=== PATIENT | male | born 1945 | race Caucasian/White ===

== ENCOUNTER 2024-07-15 04:37 | Emergency (ER) | payer MEDICARE, SELFPAY ==
--- NOTE | ~2024-07-15 | XR_ITS ---
EXAMINATION: XR hand RT min 3V DATE: 07/15/2024 06:05 INDICATION: Right hand cat bite and redness and swelling. TECHNIQUE: 3 views of right hand were obtained. COMPARISON: None. FINDINGS: Alignment is normal. No fracture. There is severe osteoarthritis of first carpometacarpal j oint with loose bodies. There is moderate osteoarthritis of first metacarpophalangeal joint and mild osteoarthritis of many of the other metacarpophalangeal joints and interphalangeal joints. There is m oderate osteoarthritis of first interphalangeal joint, third proximal interphalangeal joint, and seco nd-fifth distal interphalangeal joints. IMPRESSION: 1. No fracture or radiopaque foreign body. 2. Polyarticular osteoarthritis. Reviewed, dictated and finalized at location A. OACTIVE WASTE DISPOSAL DISPATCHER
--- OUTSIDE RECORDS SUMMARY | 2024-07-15 04:39 | XMS_ITS | Encounter Summary ---
Author Organization [employer] Address 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
--- OUTSIDE RECORDS SUMMARY | 2024-07-15 04:39 | XMS_ITS | Clinical Summary ---
Author Organization [facility] Address [address] 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
--- OUTSIDE RECORDS SUMMARY | 2024-07-15 04:39 | XMS_ITS | Data Portability ---
Author Organization [facility] Address [address] [place] [address] Care Team Providers Care End Maker Name Role Phone RAGHU LUNA Primary Care Provider Assessment No assessment recorded. Plan of Treatment Reminders Order Date Submit Date Provider Last Modified By Organization Details Last Modified Time Details Appointments None recorded. Lab PSA, serum or plasma 2022 023 [facility], [address] [facility] [address], [place], [address], 3 08:20:00 CBC 2022 023 [facility], [address] [facility], [facility] [address], [place], [address], 3 06:15:39 CMP, serum or plasma 2022 023 [facility], [address] [facility], [facility] [address], [place], [address], 3 06:15:38 lipid panel, serum 2022 023 [facility], [address] [facility], [facility] [address], [place], [address], 3 06:15:37 Referral gastroente rologist referral 2022 023 christie Ferrer, [address] [facility], [facility] [address] [facility] [address], [address], 3 13:50:42 Procedures None recorded. Surgeries None recorded. Imaging None recorded. Medication Orders celecoxib 200 mg capsule [address] [id number], [address], [place], [id number], 3 11:01:11 meloxicam 15 mg tablet 2023 024 [id number], [address], [place], [id number], 4 11:03:37 Patient TargetsNo targets recorded. 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 History of polyp of colon Referring Physician: Raghu Luna, Family Medicine, Encounter Date: 07/10/2022 Results Created Date Observation Date Name Description Value Unit Range Abnormal Flag Note LastModifiedBy Organization Detail LastModifiedTime 07/10/1907/10/2022 LIPID PANEL cholesterol, total 172.8 mg/dL 140.0- 200.0 Not Available [facility] ([facility]) [address] [facility], [place], [address], 07/11/2022 06:15:37 07/10/1907/10/2022 LIPID PANEL triglyceride s 84 mg/dL <=150 Not Available [facility] ([facility]) [address] [facility], [place], [address], 07/11/2022 06:15:37 07/10/1907/10/2022 LIPID PANEL HDL cholesterol 53.9 mg/dL 40.0-1 00.0 Not Available [facility] ([facility]) [address] [facility] [place], [address], 07/11/2022 06:15:37 07/10/19 23 07/10/2022 LIPID PANEL VLDL cholesterol kayce 16.80 mg/dL 5.00-4 0.00 Not Available [facility] ([facility]) [address] [facility] [place], [address], 07/11/2022 06:15:37 07/10/19 23 07/10/2022 LIPID PANEL LDL chol calc ([facility]) 103.3 Not Available [facility] ([facility]) [address] [facility] [place], [address], 07/11/2022 06:15:37 07/10/19 23 07/10/2022 COMP. METAB OLIC PANEL (14) glucose 92 mg/dL 65-99 ANION GP 16.0 mmol/ L N OSMOL 283.0 mOsM/ L N REFER ENCE RANGE : 275.0 -301. 0 Not Available [facility] ([facility]) [address] [place], [address], 07/11/2022 06:15:38 07/10/19 23 07/10/2022 COMP. METAB OLIC PANEL (14) BUN 21 mg/dL 8-26 Not Available [facility] ([facility]) [address] [place], [address], 07/11/2022 06:15:38 07/10/19 23 07/10/2022 COMP. METAB OLIC PANEL (14) creatinine 0.86 mg/dL 0.50-1 .40 Not Available [facility] ([facility]) [address] [place], [address], 07/11/2022 06:15:38 07/10/19 23 07/10/2022 COMP. METAB OLIC PANEL (14) eGFR 90 mL/mi n/1.7 3 >=60 Not Available [facility] ([facility]) [address] [place], [address], 07/11/2022 06:15:38 07/10/19 23 07/10/2022 COMP. METAB OLIC PANEL (14) BUN/creatini ne ratio 24.2 Not Available [facility] ([facility]) [address] [facility] [place], [address], 07/11/2022 06:15:38 07/10/19 23 07/10/2022 COMP. METAB OLIC PANEL (14) sodium 140.8 mmol/ L 136.0- 144.0 Not Available [facility] ([facility]) [address] [facility] [place], [address], 07/11/2022 06:15:38 07/10/19 23 07/10/2022 COMP. METAB OLIC PANEL (14) potassium 4.5 mmol/ L 3.5-5. 3 Not Available [facility] ([facility]) [address] [place], [address], 07/11/2022 06:15:38 07/10/19 23 07/10/2022 COMP. METAB OLIC PANEL (14) chloride 103 mmol/ l 101-11 1 Not Available [facility] ([facility]) [address] [facility] [place], [address], 07/11/2022 06:15:38 07/10/19 23 07/10/2022 COMP. METAB OLIC PANEL (14) carbon dioxide, total 26.0 mmol/ L 21.0-3 2.0 Not Available [facility] ([facility]) [address] [facility] [place], [address], 07/11/2022 06:15:38 07/10/19 23 07/10/2022 COMP. METAB OLIC PANEL (14) calcium 9.4 mg/dL 8.2-10 .0 Not Available [facility] ([facility]) [address] [facility] [place], [address], 07/11/2022 06:15:38 07/10/19 23 07/10/2022 COMP. METAB OLIC PANEL (14) protein, total 7.2 g/dL 6.7-8. 2 Not Available [facility] ([facility]) [address] [place], [address], 07/11/2022 06:15:38 07/10/19 23 07/10/2022 COMP. METAB OLIC PANEL (14) albumin 4.3 g/dL 3.5-5. 5 Not Available [facility] ([facility]) [address] [place], [address], 07/11/2022 06:15:38 07/10/19 23 07/10/2022 COMP. METAB OLIC PANEL (14) globulin, total 2.9 g/dL 1.5-4. 5 Not Available [facility] ([facility]) [address] [place], [address], 07/11/2022 06:15:38 07/10/19 23 07/10/2022 COMP. METAB OLIC PANEL (14) A/G ratio 1.5 Not Available [facility] ([facility]) [address] [place], [address], 07/11/2022 06:15:38 07/10/19 23 07/10/2022 COMP. METAB OLIC PANEL (14) bilirubin, total 0.4 mg/dL 0.0-1. 2 Not Available [facility] ([facility]) [address] [place], [address], 07/11/2022 06:15:38 07/10/19 23 07/10/2022 COMP. METAB OLIC PANEL (14) alkaline phosphatase 73.0 IU/L 42.0-1 21.0 Not Available [facility] ([facility]) [address] [place], [address], 07/11/2022 06:15:38 07/10/19 23 07/10/2022 COMP. METAB OLIC PANEL (14) AST (SGOT) 20.1 U/L 10.0-4 2.0 Not Available [facility] ([facility]) [address] [facility] [place], [address], 07/11/2022 06:15:38 07/10/19 23 07/10/2022 COMP. METAB OLIC PANEL (14) ALT (SGPT) 20.1 U/L 10.0-6 0.0 Not Available [facility] ([facility]) [address] [facility] [place], [address], 07/11/2022 06:15:38 07/10/19 23 07/10/2022 CBC, PLATE LET, NO DIFFE RENTI AL WBC 5.0 K/uL 3.4-10 .8 Not Available [facility] ([facility]) [address] [place], [address], 07/11/2022 06:15:39 07/10/19 23 07/10/2022 CBC, PLATE LET, NO DIFFE RENTI AL RBC 5.2 M/uL 4.5-6. 3 Not Available [facility] ([facility]) [address] [place], [address], 07/11/2022 06:15:39 07/10/19 23 07/10/2022 CBC, PLATE LET, NO DIFFE RENTI AL hemoglobin 15.3 g/dL 13.5-1 7.5 Not Available [facility] ([facility]) [address] [place], [address], 07/11/2022 06:15:39 07/10/19 23 07/10/2022 CBC, PLATE LET, NO DIFFE RENTI AL hematocrit 46.8 % 40.0-5 2.0 Not Available [facility] ([facility]) [address] [place], [address], 07/11/2022 06:15:39 07/10/19 23 07/10/2022 CBC, PLATE LET, NO DIFFE RENTI AL MCV 90 fL 80-95 Not Available [facility] ([facility]) [address] [facility], [place], [address], 07/11/2022 06:15:39 07/10/1907/10/2022 CBC, PLATE LET, NO DIFFE RENTI AL MCH 29 pg 27-32 Not Available [facility] ([facility]) [address] [facility], [place], [address], 07/11/2022 06:15:39 07/10/1907/10/2022 CBC, PLATE LET, NO DIFFE RENTI AL MCHC 33 g/dL 32-36 Not Available [facility] ([facility]) [address] [place], [address], 07/11/2022 06:15:39 07/10/1907/10/2022 CBC, PLATE LET, NO DIFFE RENTI AL RDW 13.0 % 11.5-1 4.5 Not Available [facility] ([facility]) [address] [place], [address], 07/11/2022 06:15:39 07/10/1907/10/2022 CBC, PLATE LET, NO DIFFE RENTI AL platelets 262 K/uL 155-37 9 MPV 9.9 FL 8.9-1 2.7 N Not Available [facility] ([facility]) [address] [place], [address], 07/11/2022 06:15:39 07/10/1907/10/2022 CBC, PLATE LET, NO DIFFE RENTI AL NRBC 0 % Not Available [facility] ([facility]) [address] [place], [address], 07/11/2022 06:15:39 07/10/19 23 07/10/2022 PSA TOTAL (REFL EX TO FREE) reflex criteria Commen t The perce nt free PSA is perfo rmed on a refle x basis only when the total PSA is betwe en 4.0 and 10.0 ng/mL . Not Available [facility] ([facility]) [address] [facility], [place], [address], 07/11/2022 08:20:00 07/10/1907/11/2022 PSA TOTAL (REFL EX TO FREE) prostate specific Ag 2.3 NG/mL 0.0-4. 0 Jorge L ECLIA metho dolog y. Accor ding to the Ameri can Urolo gical Assoc iatio n, Serum PSA shoul d decre ase and remai n at undet ectab le level s after radic al prost atect jean. The AUA defin es bioch emica l recur rence as an initi al PSA value 0.2 ng/mL or great er follo wed by a subse quent confi rmato ry PSA value 0.2 ng/mL or great er. Value s obtai briana with diffe rent assay metho ds or kits canno t be used inter cowan eably . Resul ts canno t be inter prete d as absol th[place] town evide nce of the prese nce or absen ce of moose hernandez se. Not Available [facility] ([facility]) [address] [facility], [place], [address], 07/11/2022 08:20:00 07/10/1907/10/2022 CARDI OVASC ULAR REPOR T interpretati on Note Suppl ement al repor t is avail able. Not Available [facility] ([facility]) [address] [facility], [place], [address], 07/11/2022 06:15:38 07/10/1907/10/2022 CARDI OVASC ULAR REPOR T pdf . Not Available [facility] ([facility]) [address] [facility], [place], [address], 07/11/2022 06:15:38 Result Notes None recorded. Problems No Known Problems Procedures Surgical History Date Name Laterality Status Provider Name and Address Organization Details Recorded Time Total hip arthroplasty completed Rosibel Mancilla MA [facility] 07/10/2022 10:06:14 Knee arthroscopy/surge ry completed Rosibel Mancilal MA [facility] 07/10/2022 10:06:38 Knee Surgery completed Rosibel Mancilla MA [facility] 07/10/2022 10:07:56 procedure on upper arm completed Rosibel Mancilla MA [facility] 07/10/2022 10:09:15 Imaging Results None recorded. Procedure Notes None recorded. Medical Equipment None Reported. Allergies No known drug allergies Medications Name Sig Start Date Stop Date Status Note LastModified by Organization Details LastModified Time celecoxib 200 mg capsule TAKE 1 CAPSULE BY MOUTH EVERY DAY active Not Available Not Available No t Available meloxicam 15 mg tablet TAKE 1 TABLET BY MOUTH EVERY DAY NEEDED 025 active Not Available Not Available Not Avai lable amoxicillin 500 mg tablet TAKE 1 TABLET BY MOUTH THREE TIMES DAILY UNTIL GONE active Not Available Not Available No t Available Vitals Date Recorded Body weight Oxygen saturation Oxygen saturation in Arterial blood by Pulse oximetry Heart rate Systolic blood pressure Diastolic blood pressure Provider Name and Address Organization Details Last Updated DateTime 3 05977.2 6 g 96 % 96 % 56 /min 124 mm[Hg] 72 mm[Hg] Rosibel wall MA [facility] 3 10:11:43 Date Recorded Body weight Body height Body mass index (BMI) Oxygen saturation Oxygen saturation in Arterial blood by Pulse oximetry Heart rate Body temperature Provider Name and Address Organization Details Last Updated DateTime 3 36942.8 8 g 162.56 cm 34.2 kg/m2 96 % 96 % 72 /min 98.2 [degF] Rosibel wall MA [facility] 3 10:24:48 Date Recorded Systolic blood pressure Diastolic blood pressure Provider Name and Address Organization Details Last Updated DateTime 08/17/2022 150 mm[Hg] 80 mm[Hg] Raghu Luna PA-C Attn: Accounting[address] [place], [address], [place] - [facility] 08/17/2022 10:54:47 Date Recorded Body height Body mass index (BMI) Body weight Systolic blood pressure Diastolic blood pressure Provider Name and Address Organization Details Last Updated DateTime 02/18/2024 162.56 cm 34.7 kg/m2 69781.36 g 126 mm[Hg] 70 mm[Hg] Sole Vernon MA [place] - [facility] 10:50:42 Social History Question Answer Notes LastModified by Organizat ion Details LastModified Time Tobacco Smoking Status Former Smoker quit 10 years ago Rosibel Mancilla MA null, [place] [facility] 07/10/2022 10:04:28 What Is Your Level Of Alcohol Consumption? Occasional 2-3 Drinks Per Month Information not available 07/10/2022 Are You Blind Or Do You Have Difficulty Seeing? Yes Reading Glasses Information not available 07/10/2022 What Is Your Level Of Caffeine Consumption? Moderate Coffee, Tea Information not available 08/17/2022 Are You Currently Employed? Yes Information not available 07/10/2022 Are You Deaf Or Do You Have Serious Difficulty Hearing? No Information not available 07/10/2022 What Type Of Diet Are You Following? 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 02/18/2024 Information not available 02/18/2024 What Is Your Relationship Status? Information not available 07/10/2022 Do You Use Your Seat Belt Or Car Seat Routinely? Yes Information not available 07/10/2022 Do You Have Smoke And Carbon Monoxide Detectors In Your Home? Yes Information not available 07/10/2022 Are You Passively Exposed To Smoke? No Information not available 07/10/2022 Do You Feel Stressed (tense, Restless, Nervous, Or Anxious, Or Unable To Sleep At Night)? TS4946-1 Information not available 07/10/2022 Do You Use Any Illicit Or Recreational Drugs? No Information not available 07/10/2022 Has Tobacco Cessation Counseling Been Provided? Yes Information not available 07/10/2022 On What Date Was Tobacco Cessation Counseling Provided? 02/18/2024 Information not available 02/18/2024 Do You Or Have You Ever Used Any Other Forms Of Tobacco Or Nicotine? No Information not available 07/10/2022 Sex: Male Functional Status Question Answer Note LastModified by Organizat ion Details LastModified Time Are you able to care for yourself? Yes Information not available 07/10/2022 What is your exercise level? Occasional Information not available 07/10/2022 Mental Status None recorded. Family History Relationship Description Onset Age of this Age Resolved Age Notes LastModified by Organization Details LastModified Time Father No current problems or disability [email or web address] Not available 0 07/10/2022 10:04:15 Mother No current problems or disability [email or web address] Not available 0 07/10/2022 10:04:16 Medical History No medical history recorded. Immunizations Vaccine Type Date Status Note Provider Nam e and Address Organization Details Recorded Time COVID-19, mRNA, LNP-S, PF, 100 mcg/0.5mL dose or 50 mcg/0.25mL dose 1 completed An Hernandez MA null, [place] - [facility] 08/01/2020 14:43:37 COVID-19, mRNA, LNP-S, PF, 100 mcg/0.5mL dose or 50 mcg/0.25mL dose 1 completed Luis Antonio Rojas [place] null, [place] - [facility] 08/29/2020 12:29:13 Pneumococcal conjugate PCV20, polysaccharide [id number] conjugate, adjuvant, PF 4 completed Sole Vernon [place] null, [place] - [facility] 02/18/2024 11:25:36 COVID-19, mRNA, LNP-S, PF, 50 mcg/0.5 mL 4 completed Sole Vernon [place], [place] [facility] 04/18/2024 10:27:01 Influenza, high-dose, trivalent, PF 11/12/202 4 completed SHARATH Krueger, [place] - [facility] 04/18/2024 10:27:02 Past Encounters Encounter ID Performer Location Encounter Start Date Encounter Closed Date Diagnosis/Indication Diagnosis SNOMED-CT Code Diagnosis ICD10 Code Diagnosis Note [id number] Karina Zhao LPN [place] 14 IM 4 [facility] [place] [address] 08/01/2020 11:06:33 08/02/2020 06:27:41 Administration of SARS-CoV-2 antigen vaccine 503671120 Z23 [id number] Karina Zhao LPN [place] 14 IM 4 [facility] [place] [address] 08/29/2020 11:00:20 08/30/2020 12:15:52 Administration of SARS-CoV-2 antigen vaccine 120020182 Z23 [id number] [facility] [address] [place] [address] 07/10/2022 09:44:19 07/10/2022 10:59:05 Mechanical ileus 69285926 K56.690 Adult [facility] th examination 600991918 Z00.00 Screening for malignant neoplasm of prostate 778297146 Z12.5 Overweight 723333123 E66 .3 History of polyp of colon 006820415 Z86.919 [id number] Raghu Luna PA-C [facility] [address] [place] [address] 08/17/2022 10:21:05 08/18/2022 10:47:57 Adult health examination 007179550 Z00.00 Localized, primary osteoarthritis 464261050 M19.91 Overweight 212017648 E66 .3 Osteoarthritis 038479920 M19.90 [id number] SOY Castaneda [address] [place] [address] 02/18/2024 10:35:05 02/22/2024 12:19:53 Administration of pneumococcal vaccine 38064321 Z23 Osteoarthritis 165743064 M15.0 Overweight 367639904 E66 .3 [id number] Sole Vernon MA [facility] [address] [place] [address] 04/18/2024 10:00:51 04/19/2024 09:20:21 Immunization due 299082348 Z28.39 Health Concerns Section Related Observation LastModified by Organization Detai ls LastModified Time None Recorded Concern Status LastModified by Organization Details LastModified Time None Recorded Advance Directives Directive None Recorded Payers Encounter Date Sequence Insurance Name Policy Number Policy Persaud Covered Member ID Persaud Member ID Guarantor Name 08/29/2020 1 [place] Julio Cesar Gerardosch [id number] [facility] Jose E [facility] 08/29/2020 2 [place] [id number] Abilio Gerardosch [id number] Julio Cesar Jose E [facility] 07/10/2022 1 [place] Julio Cesar Dorantes Amisch [id number] [facility] 07/10/2022 1 UMR [id number] Abilio Gerardosch [id number] [facility] 08/17/2022 1 [place] Julio Cesar Dorantes Amisch [id number] [facility] 08/17/2022 1 UMR [id number] Abilio Dorantes Amisch [id number] [facility] Jose E [facility] 02/18/2024 1 [place] Julio Cesar Gerardosch [id number] [facility] Jose E [facility] 04/18/2024 1 [place] Julio Cesar Gerardosch [id number] Julio Cesar Jose E [facility] Notes Date Note Type Note Provider Name and Address Organization Details Recorded Time 07/10/2022 text/html see review...als o needs labs... Raghu Luna PA-C Attn: Accounting[address] [facility], [place], [address], [facility] 07/10/2022 10:33:12 08/17/2022 text/html wants to re certify for scuba diving and needs a physical...had covid a few weeks ago... Raghu Luna PA-C Attn: Accounting[address] [facility], [place], [address], [facility] 08/17/2022 11:26:08 02/18/2024 text/html had colonoscopy and endo...only thing found was irritation from nsaids...labs at [place] were all good...is liking celebrex.... Raghu Luna PA-C Attn: Accounting[address] [place], [address], [facility] 02/18/2024 11:07:33
--- OUTSIDE RECORDS SUMMARY | 2024-07-15 04:39 | XMS_ITS | Clinical Summary ---
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/18/2019 Social History Tobacco Use Types Packs/Day Years Used Date Smoking Tobacco: Former Smokeless Tobacco: Never Tobacco Cessation:Counseling Given: Yes Personal Safety Answer Date Recorded Getting School Help Needed Not on file 06/22 Sex and Gender Information Value Date Recorded Sex Assigned at Not on file Legal Sex Male 7:53 PM SUPERVISOR HARDBOARD Gender Identity Not on file Sexual Orientation Not on file Obstetrics History Last Filed Vital Signs Vital Sign Reading Time Taken Comments Blood Pressure 114/64 07/22/2022 8:45 AM SUPERVISOR HARDBOARD Pulse 57 07/22/2022 8:45 AM SUPERVISOR HARDBOARD Temperature 36.8 C (98.2 F) 07/22/2022 8:45 AM SUPERVISOR HARDBOARD Respiratory Rate 15 07/22/2022 8:45 AM SUPERVISOR HARDBOARD Oxygen Saturation 98% 07/22/2022 8:45 AM SUPERVISOR HARDBOARD Inhaled Oxygen Concentration - - Weight 86.2 kg (190 lb) 07/22/2022 8:45 AM SUPERVISOR HARDBOARD Height 170.2 cm (5' 7 ) 07/22/2022 8:45 AM SUPERVISOR HARDBOARD Body Mass Index 29.76 07/22/2022 8:45 AM SUPERVISOR HARDBOARD Plan of Treatment Health Maintenance Due Date Last Done Comments Depression Screening 1945 Fall Risk Assessment 1945 Hepatitis C Screening 1945 DTaP/Tdap/Td Vaccine (1 - Tdap) 1956 Hepatitis B Screening 10/03/1963 Zoster Vaccine (1 of 2) 10/03/1995 Abdominal Aortic Aneurysm (A AA) Screen 2010 Pneumococcal vaccine 65+ (1 of 1 - PCV) 2010 Well Visit 65+ 2010 Covid-19 Vaccine (6 - 2023-2 5 season) 2024 05/27/2022, 09/12/2021, 04/22/2021, Additional history exists Influenza Vaccine (#1) 2024 05/27/2022 Colon Cancer Screening-CT Colonography Discontinued 07/28/2011 Colon Cancer Screening-Colonoscopy Discontinued 07/28/2011 Colon Cancer Screening-DNA Stool Discontinued 07/28/19 12 Colon Cancer Screening-FIT Discontinued 07/28/2011 Colon Cancer Screening-FOBT Discontinued 07/28/2011 Colon Cancer Screening-Sigmoidoscopy Discontinued 07/28/2011 Colorectal Cancer Screening Discontinued Procedures Procedure Name Priority Date/Time Associated Diagnosis Comments COLONOSCOPY 07/28/2011 12:00 AM SUPERVISOR HARDBOARD from Last 3 Months or Most Recently Relevant to Health Maintenance Results * COLONOSCOPY (07/28/2011 12:00 AM SUPERVISOR HARDBOARD) Anatomical Region Laterality Modality Other Narrative 07/28/2011 12:00 AM SUPERVISOR HARDBOARD Ordered by an unspecified provider. Procedure Note Provider, MD Eulogio - 07/28/2011 12:00 AM CST PROCEDURE REPORT Patient: AMA ABDUL Account: [id number] Room No: : 1945 Patient Type: [facility] Attend.: Nura Ferrer M.D. Admit Date: 07/28/2011 Dict.: Nura Ferrer M.D. Disch. Date:07/28/2011 PROCEDURE PERFORMED: Colonoscopy with polypectomy. INDICATION: Screening for colon cancer. DATE OF PROCEDURE: 07/28/2011 PRIMARY CARE PHYSICIAN: Dr. Byron Vaughn. BRIEF HISTORY AND PHYSICAL: The patient is a 65-year-old white male.Last colonoscopy was 15 years ago. Patient presented for screening colonoscopytest. PROCEDURE: Sedation was provided by anesthesia service. The procedureof colonoscopy including indications and possible complications ofbleeding, infection and perforation requiring surgery were discussed with thepatient and consent was obtained. Rectal exam prior to colonoscopy wasunremarkable. The scope introduced into the rectum and advanced all the way to thececum which was identified by the ileocecal valve and appendiceal orifice. Thececum and were unremarkable. In the proximal part of the transversecolon there was a 10 mm semi-sessile polyp removed by hot snare technique.There was another 4 mm polyp in the same vicinity and removed by cold biopsyforceps. The ileocecal valve appeared somewhat thick and biopsy was performed torule out polyp formation. The remainder part of the transverse colon,descending colon, sigmoid colon and rectum were unremarkable. A few smalldiverticuli noted scattered in the sigmoid colon and ascending colon. Retroflexion ofthe rectum showed small internal hemorrhoids. IMPRESSION: 1. 10 mm semi-sessile polyp in the proximal transverse colon removedby snare polypectomy. 2. 4 mm polyp in the proximal transverse colon removed by coldbiopsy forceps. 3. Diverticulosis of sigmoid colon. 4. Small internal hemorrhoids. RECOMMENDATIONS: 1. Follow up pathology report. Katarina Singh/jayleen TD: 07/29/2011 14:01 CC: Byron Vaughn M.D. Authenticated by Nura Ferrer MD On 07/31/2011 12:39:58 PM Historical Provider ENDOSCOPY PROCEDURES Amanda l Result from Last 3 Months or Most Recently Relevant to Health Maintenance Insurance [facility] ACCESS CHOICE MEDICARE [facility] CHOICE [facility] CHOICE MEDICARE [facility] Care Teams Biology Specimen Technician Relationship Specialty Start Date End Date Hayes Luna PA [address] [place] [address] PCP - General Family Practice 07/22/22 [facility], Jimmie Berger [address] [place] [address] Referring Physician Genetics 07/22/22
--- OUTSIDE RECORDS SUMMARY | 2024-07-15 04:39 | XMS_ITS | Referral Summary ---
Author Organization [facility] Address [address] [place] [address] Care Team Providers Care Bottom Finisher Name Role Phone Hayes Luna Primary Care Provider [phone] [facility], Jimmie Berger Unavailable Allergies No known active [...] on file Legal Sex Male 7:53 PM PRINCIPAL SCIENTIST Gender Identity Not on file Sexual Orientation Not on file Last Filed Vital Signs Vital Sign Reading Time Taken Comments Blood Pressure 114/64 07/22/2022 8:45 AM PRINCIPAL SCIENTIST Pulse 57 07/22/2022 8:45 AM PRINCIPAL SCIENTIST Temperature 36.8 C (98.2 F) 07/22/2022 8:45 AM PRINCIPAL SCIENTIST Respiratory Rate 15 07/22/2022 8:45 AM PRINCIPAL SCIENTIST Oxygen Saturation 98% 07/22/2022 8:45 AM PRINCIPAL SCIENTIST Inhaled Oxygen Concentration - - Weight 86.2 kg (190 lb) 07/22/2022 8:45 AM PRINCIPAL SCIENTIST Height 170.2 cm (5' 7 ) 07/22/2022 8:45 AM PRINCIPAL SCIENTIST Body Mass Index 29.76 07/22/2022 8:45 AM PRINCIPAL SCIENTIST Plan of Treatment Not on file Procedures Procedure Name Priority Date/Time Associated Diagnosis Comments COLONOSCOPY 07/28/2011 12:00 AM PRINCIPAL SCIENTIST from Last 3 Months or Most Recently Relevant to Health Maintenance Results * COLONOSCOPY (07/28/2011 12:00 AM PRINCIPAL SCIENTIST) Anatomical Region Laterality Modality Other Narrative 07/28/2011 12:00 AM PRINCIPAL SCIENTIST Ordered by an unspecified provider. Procedure Note Provider, MD Eulogio - 07/28/2011 12:00 AM CST PROCEDURE REPORT Patient: AMA ABDUL Account: [id number] Room No: : 1945 Patient Type: [facility] Attend.: Nura Ferrer M.D. Admit Date: 07/28/2011 [...] hemorrhoids. RECOMMENDATIONS: 1. Follow up pathology report. Nura Ferrer M.D. ZACKARY/jayleen TD: 07/29/2011 14:01 CC: Byron Vaughn M.D. Authenticated by Nura Ferrer MD On 07/31/2011 12:39:58 PM Historical Provider ENDOSCOPY PROCEDURES Amanda l Result from Last 3 Months or Most Recently Relevant to Health Maintenance Insurance [facility] CHOICE Member Subscriber Plan / Payer ( fective 2017-Present) Name:Ama Abdul Relation to Subscriber:Self Name:Ama Abdul Payer ID:[id number] (NAIC) Type:[facility] Address: [address] [place] [id number] MEDICARE [facility] CHOICE [facility] MEDICARE [facility] Care Teams Bottom Finisher Relationship Specialty Start Date End Date Hayes Luna PA [address] [place] [address] PCP - General Family Practice 07/22/22 [facility], Jimmie Berger [address] [place] [id number] Referring Physician Genetics 07/22/22
--- NOTE | 2024-07-15 04:50 | ECG_ITS ---
Test Date: 2024-07-15 04:58:23 Measurements Intervals [place] Rate: 51 P: 64 LA: 182 QRS: 36 QRSD: 93 T: 42 QT: 444 QTc: 410 Interpretive Statements SINUS BRADYCARDIA BASELINE WANDER- II, III, AVR, AVL, AVF, V1-V2, V4-V6 BORDERLINE ECG No previous ECG available for comparison Electronically Signed On 07-15-2024 06:36:26 DOMESTIC TRAVEL CONSULTANT by Lefty Marinelli D.O.
--- NOTE | 2024-07-15 04:54 | ED_ITS ---
HPI - General Adult General Chief complaint: Wound/Laceration Stated complaint: wound to hand Time Seen by Provider: 07/15/24 04:51 History of Present Illness HPI narrative: This is a 70-year-old left-handed male male presenting after a cat bite. He was bit by his cat 1 week ago over his right 2nd digit MCP. He has been on Augmentin for 5 days. He has now developed increased redness and a fluctuant mass over his MCP of the 2nd digit. Patient denies fevers chills nausea vomiting or diarrhea. Related Data Home Medications ?Medication ?Instructions ?Recorded ?Confirmed ?Last Taken ?Type No Home Medications 01/24/20 02/19/21 Unknown History Allergies Allergy/AdvReac Type Severity Reaction Status Date / Time No Known Allergies Allergy Other Uncoded 07/09/24 08:34 [facility] Past Medical History Medical History Cancer of ear Surgical History Surgical History History of hip surgery right total hip - 2018 - Dr. 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 Head: atraumatic. EYES: EOMI, NOSE: Atraumatic NECK: Trachea midline RESPIRATORY: No increased rate of breathing CARDIOVASCULAR: RRR, ABDOMINAL: Non-distended MUSCULOSKELETAl: Cellulitic changes over the dorsal aspect right hand with a fluctuant mass over the MCP of the 2nd digit NEURO: Alert. Moving 4/4 extremities SKIN:: Warm, dry. Normal color PSYCHIATRIC: Normal affect Course Vital Signs Vital signs: Vital Signs Temperature 97.7 F 07/15/24 04:57 Pulse Rate 61 07/15/24 04:57 Respiratory Rate 18 07/15/24 04:57 Blood Pressure 175/91 H 07/15/24 04:57 Pulse Oximetry 97 07/15/24 04:57 Temperature 97.7 F 07/15/24 04:57 Pulse Rate 56 L 07/15/24 05:41 Respiratory Rate 16 07/15/24 05:41 Blood Pressure 165/96 H 07/15/24 05:41 Pulse Oximetry 100 07/15/24 05:41 Medical Decision Making MDM Narrative Medical decision making narrative: -Course: 70-year-old male presenting 1 week after a cat bite. He has failed outpatient therapy. It appears he is developing an abscess over his right MCP. Patient has been started on Zosyn. He will need a hand surgeon and we do not have one awake overnight monitor. Patient will be transferred. Patient accepted by Dr. Carrasco in the [facility] emergency department. Patient will be transferred private vehicle. -DDX includes but is not limited to: Cellulitis, abscess Vital Signs Vital Signs: Vital Signs Temperature 97.7 F 07/15/24 04:57 Pulse Rate 61 07/15/24 04:57 Respiratory Rate 18 07/15/24 04:57 Blood Pressure 175/91 H 07/15/24 04:57 Pulse Oximetry 97 07/15/24 04:57 Temperature 97.7 F 07/15/24 04:57 Pulse Rate 56 L 07/15/24 05:41 Respiratory Rate 16 07/15/24 05:41 Blood Pressure 165/96 H 07/15/24 05:41 Pulse Oximetry 100 07/15/24 05:41 Lab Data 07/15/24 05:06 07/15/24 05:06 Labs: Lab Results 07/15/24 07/15/24 Range/Units 05:06 05:19 WBC 4.9 (4.5-10.0) K/mm3 RBC 4.89 (4.6-6.20) M/mm3 Hgb 14.8 (14.0-18.0) g/dL Hct 44.4 (42.0-52.0) % MCV 90.8 (80-100) fl MCH 30.3 (26-34) pg MCHC 33.3 (32-36) g/dl RDW 12.9 (11.5-14.5) % Plt Count 261 (150-375) k/mm3 MPV 9.2 (7.4-10.4) fl Immature Gran % (Auto) 0.2 (0-0.5) % Neut % (Auto) 40.1 L (45.5-73.1) % Lymph % (Auto) 44.5 H (18.3-44.2) % [place] % (Auto) 11.7 H (2.6-8.5) % Eos % (Auto) 2.5 (0-4.4) % Baso % (Auto) 1.0 (0.2-1.2) % Lymph # (Auto) 2.17 (0.9-3.2) K/mm3 [place] # (Auto) 0.6 (0.1-0.6) K/mm3 Eos # (Auto) 0.1 (0-0.3) K/mm3 Baso # (Auto) 0.1 (0.0-0.1) K/mm3 Abs Immat Gran (auto) 0.01 (0.00-0.031) K/mm3 Absolute Neuts (auto) 2.0 (1.3-6.7) K/mm3 Absolute Nucleated RBC 0.000 (0.0-0.012) K/mm3 Nucleated RBC % 0.0 (0.0-0.2) % PT 13.2 (11.1-14.7) Seconds INR 1.0 APTT 30.8 (22.3-36.8) Seconds Sodium 140 (137-145) mmol/L Potassium 4.2 (3.4-5.0) mmol/L Chloride 104 (98-107) mmol/L Carbon Dioxide 27 (22-30) mmol/L Anion Gap 9 (4-12) mmol/L BUN 18 (9-20) mg/dL Creatinine 0.87 (0.7-1.3) mg/dL Estim Creat Clear Calc 69 ml/min Estimated GFR > 60 (59 - ) Glucose 101 (65-110) mg/dL Lactic Acid 0.8 (0.7-2.0) mmol/L Calcium 8.7 (8.4-10.2) mg/dL Phosphorus 3.4 (2.5-4.5) mg/dL Magnesium 2.3 (1.6-2.3) mg/dL Total Bilirubin 0.4 (0.2-1.3) mg/dL AST 23 (17-59) U/L ALT 27 (6-50) U/L Alkaline Phosphatase 74 (38-126) U/L Total Protein 7.0 (6.3-8.2) g/dL Albumin 3.9 (3.5-5.1) g/dL Influenza A (RT-PCR) Negative (Negative) Influenza B (RT-PCR) Negative (Negative) RSV (RT-PCR) Negative (Negative) SARS-CoV-2 RNA (RT-PCR) Negative (Negative) Discharge Plan Discharge Clinical Impression: Infected cat bite Patient Disposition: Acute Care Hospital Condition: Stable Instructions: Animal Bite (ED) Additional Instructions: Please report directly to [facility] emergency department to be evaluated by their hand surgeon. The address of the emergency department is: [address] [place] [id number] Patient Language: Faroese Prescriptions: No Action amoxicillin-pot clavulanate 875-125 mg tablet 1 tablet PO Q12H 7 Days Qty: 14 0RF No Home Medications Follow-up/Referrals: PHYSICIAN,LANOLIN PLANT OPERATOR [Primary Care Provider] -
[2024-07-15 04:57] VITALS: BP 175/91; PULSE 61; RESP 18; TEMP 36.5; O2SAT 97
[2024-07-15 05:13] LABS: Basophils Absolute Auto 0.1 K/mm3 (0.0-0.1); Eosinophils Absolute Auto 0.1 K/mm3 (0-0.3); Eosinophils Percent Auto 2.5 % (0-4.4); Hematocrit 44.4 % (42.0-52.0); Hemoglobin 14.8 g/dL (14.0-18.0); Immature Granulocyte Absolute 0.01 K/mm3 (0.00-0.031); Immature Granulocyte Percent A 0.2 % (0-0.5); Lymphocytes Absolute Auto 2.17 K/mm3 (0.9-3.2); Lymphocytes Percent Auto 44.5 % (18.3-44.2); Mean Corpuscular HGB Conc 33.3 g/dl (32-36); Mean Corpuscular Hemoglobin 30.3 pg (26-34); Mean Corpuscular Volume 90.8 fl (80-100); Mean Platelet Volume 9.2 fl (7.4-10.4); Monocytes Absolute Auto 0.6 K/mm3 (0.1-0.6); Monocytes Percent Auto 11.7 % (2.6-8.5); Neutrophils Percent Auto 40.1 % (45.5-73.1); Platelet Count Result 261 k/mm3 (150-375); Red Blood Count 4.89 M/mm3 (4.6-6.20); Red Cell Distribution Width 12.9 % (11.5-14.5); White Blood Count 4.9 K/mm3 (4.5-10.0)
[2024-07-15 05:22] LABS: Lactic Acid Reflex 0.8 mmol/L (0.7-2.0)
[2024-07-15 05:24] LABS: Alanine Aminotransferase 27 U/L (6-50); Albumin Level 3.9 g/dL (3.5-5.1); Alkaline Phosphatase 74 U/L (38-126); Anion Gap 9 mmol/L (4-12); Aspartate Amino Transferase 23 U/L (17-59); Bilirubin,Total 0.4 mg/dL (0.2-1.3); Blood Urea Nitrogen 18 mg/dL (9-20); Calcium 8.7 mg/dL (8.4-10.2); Carbon Dioxide 27 mmol/L (22-30); Chloride 104 mmol/L (98-107); Estimated CRCL calculation 69 ml/min; Estimated Glomerular Filt Rate > 60; Glucose 101 mg/dL (65-110); Magnesium 2.3 mg/dL (1.6-2.3); Phosphorus 3.4 mg/dL (2.5-4.5); Potassium 4.2 mmol/L (3.4-5.0); Prothrombin Time 13.2 Seconds (11.1-14.7); Sodium 140 mmol/L (137-145)
[2024-07-15 05:25] LABS: Partial Thromboplastin Time 30.8 Seconds (22.3-36.8)
[2024-07-15] MEDS: PIPERACILLN/TAZ 3.375GM/NS50ML 3.375 GM/50 ML BAG IVPB (05:30)
[2024-07-15 05:41] VITALS: BP 165/96; PULSE 56; RESP 16; O2SAT 100
--- OUTSIDE RECORDS SUMMARY | 2024-07-15 05:42 | XMS_ITS | Referral Summary ---
Author Organization [facility] Address [address] [place] [address] Care Team Providers Care Economic Adviser Name Role Phone Hayes Luna Primary Care Provider [phone] [facility], Jimmie Berger Unavailable Allergies No known [...] on file Legal Sex Male 7:53 PM LIFT DRIVER Gender Identity Not on file Sexual Orientation Not on file Last Filed Vital Signs Vital Sign Reading Time Taken Comments Blood Pressure 114/64 07/22/2022 8:45 AM LIFT DRIVER Pulse 57 07/22/2022 8:45 AM LIFT DRIVER Temperature 36.8 C (98.2 F) 07/22/2022 8:45 AM LIFT DRIVER Respiratory Rate 15 07/22/2022 8:45 AM LIFT DRIVER Oxygen Saturation 98% 07/22/2022 8:45 AM LIFT DRIVER Inhaled Oxygen Concentration - - Weight 86.2 kg (190 lb) 07/22/2022 8:45 AM LIFT DRIVER Height 170.2 cm (5' 7 ) 07/22/2022 8:45 AM LIFT DRIVER Body Mass Index 29.76 07/22/2022 8:45 AM LIFT DRIVER Plan of Treatment Not on file Procedures Procedure Name Priority Date/Time Associated Diagnosis Comments COLONOSCOPY 07/28/2011 12:00 AM LIFT DRIVER from Last 3 Months or Most Recently Relevant to Health Maintenance Results * COLONOSCOPY (07/28/2011 12:00 AM LIFT DRIVER) Anatomical Region Laterality Modality Other Narrative 07/28/2011 12:00 AM LIFT DRIVER Ordered by an unspecified provider. Procedure Note Provider, MD Eulogio - 07/28/2011 12:00 AM CST PROCEDURE REPORT Patient: AMA ABDUL Account: [id number] Room No: : 1945 Patient Type: [facility] Attend.: Nura Ferrer M.D. Admit [...] Most Recently Relevant to Health Maintenance Insurance [facility] CHOICE Member Subscriber Plan / Payer ( fective 2017-Present) Name:Ama Abdul Relation to Subscriber:Self Name:Ama Abdul Payer ID:[id number] (NAIC) Type:[facility] Address: [address] [place] [id number] MEDICARE [facility] CHOICE [facility] MEDICARE [facility] Care Teams Economic Adviser Relationship Specialty Start Date End Date Hayes Luna PA [address] [place] [address] PCP - General Family Practice 07/22/22 [facility], Jimmie Berger [address] [place] [address] Referring Physician Genetics 07/22/22
--- OUTSIDE RECORDS SUMMARY | 2024-07-15 05:42 | XMS_ITS | Clinical Summary ---
Author Organization [facility] Address [address] [place] [address] Care Team Providers Care Recreational Specialist Name Role Phone Hayes Luna Primary Care Provider [phone] , Jimmie Berger Unavailable Allergies No known active [...] on file Legal Sex Male 7:53 PM PLATE PUT IN WORKER Gender Identity Not on file Sexual Orientation Not on file Obstetrics History Last Filed Vital Signs Vital Sign Reading Time Taken Comments Blood Pressure 114/64 07/22/2022 8:45 AM PLATE PUT IN WORKER Pulse 57 07/22/2022 8:45 AM PLATE PUT IN WORKER Temperature 36.8 C (98.2 F) 07/22/2022 8:45 AM PLATE PUT IN WORKER Respiratory Rate 15 07/22/2022 8:45 AM PLATE PUT IN WORKER Oxygen Saturation 98% 07/22/2022 8:45 AM PLATE PUT IN WORKER Inhaled Oxygen Concentration - - Weight 86.2 kg (190 lb) 07/22/2022 8:45 AM PLATE PUT IN WORKER Height 170.2 cm (5' 7 ) 07/22/2022 8:45 AM PLATE PUT IN WORKER Body Mass Index 29.76 07/22/2022 8:45 AM PLATE PUT IN WORKER Plan of Treatment Health Maintenance Due Date [...] Associated Diagnosis Comments COLONOSCOPY 07/28/2011 12:00 AM PLATE PUT IN WORKER from Last 3 Months or Most Recently Relevant to Health Maintenance Results * COLONOSCOPY (07/28/2011 12:00 AM PLATE PUT IN WORKER) Anatomical Region Laterality Modality Other Narrative 07/28/2011 12:00 AM PLATE PUT IN WORKER Ordered by an unspecified provider. Procedure Note Provider, MD Eulogio - 07/28/2011 12:00 AM CST PROCEDURE REPORT Patient: AMA ABDUL Account: [id number] Room No: : 1945 Patient Type: [facility] Attend.: Nura Ferrer M.D. Admit Date: [...] Most Recently Relevant to Health Maintenance Insurance [facility] ACCESS CHOICE MEDICARE [facility] CHOICE [facility] CHOICE MEDICARE [facility] Care Teams Recreational Specialist Relationship Specialty Start Date End Date Hayes Luna PA [address] [place] [address] PCP - General Family Practice 07/22/22 , Jimmie Berger [address] [place] [address] Referring Physician Genetics 07/22/22
--- OUTSIDE RECORDS SUMMARY | 2024-07-15 05:42 | XMS_ITS | Encounter Summary ---
Author Organization [facility] Address [address] [place] [address] Care Team Providers Care Aerospace Mechanic Name Role Phone Unavailable Primary Care Provider Unavailabl e Encounter Details Date Type Department Care Team (Late st Contact Info) Description 03/23/2006 Outpatient Historical [facility] Social History Tobacco Use Types Packs/Day Years Used Date Smoking Tobacco: Never Assessed Sex and Gender Information Value Date Recorded Sex Assigned at Not on file Legal Sex Male 4:47 AM DISABILITY EXAMINER Gender Identity Not on file Sexual Orientation Not on file documented as of this encounter Plan of Treatment Not on file documented as of this encounter Visit Diagnoses Not on filedocumented in this encounter
--- OUTSIDE RECORDS SUMMARY | 2024-07-15 05:42 | XMS_ITS | Clinical Summary ---
Author Organization [facility] Address [address] [place]: Epic Prelude ADT NISH[place] ESQU[place]EL [address] Care Team Providers Care Patrol Community Service Officer Name Role Phone Unavailable Primary Care Provider Unavailabl e Social History Tobacco Use Types Packs/Day Years Used Date Smoking Tobacco: Never Assessed Sex and Gender Information Value Date Recorded Sex Assigned at Not on file Legal Sex Male 4:47 AM JUNIOR SYSTEMS ENGINEER Gender Identity Not on file Sexual Orientation [...]
[2024-07-15 06:02] LABS: Influenza A QL RT-PCR Negative (Negative); Influenza B QL RT-PCR Negative (Negative); RSV RNA, RT-PCR Negative (Negative); SARS-CoV-2 RNA PCR Negative (Negative)
== END 2024-07-15 07:10 | disposition short-term general hospital (02) ==
PROVIDERS: Emergency Provider Emergency Medicine
DX: S61.451A Open bite of right hand, initial encounter (principal); L08.9 Local infection of the skin and subcutaneous tissue, unspecified; Z11.52 Encounter for screening for COVID-19; Z96.641 Presence of right artificial hip joint; Z87.891 Personal history of nicotine dependence; Z85.22 Personal history of malignant neoplasm of nasal cavities, middle ear, and accessory sinuses; W55.01XA Bitten by cat, initial encounter; R00.1 Bradycardia, unspecified
CPT/HCPCS: 36415; 73130; 80053; 83605; 83735; 84100; 85025; 85610; 85730; 87040; 87637; 93005; 96365; 99284; 99285; J2543